=== PATIENT | female | born 1995 ===

== ENCOUNTER 2016-08-19 02:03 | Emergency (ER) | payer OTHER ==
[~2016-08-19] VITALS: Ht 154.9 cm; Wt 54.4 kg
[2016-08-19 02:07] VITALS: BP 113/73
--- NOTE | 2016-08-19 02:23 | Emergency Room Report ---
History of Present Illness General Chief Complaint: Pain Source: Patient Present Illness HPI The patient presents with severe right flank pain that began when she started lifting her daughter. She is 3 weeks . The pain is in her right flank and there is some pain when she moves her left leg but also more when she moves her right leg. She denies dysuria, fevers, shortness of breath. She has not taken any medication tonight. She's taking iron. Vaginal delivery with no complications. She has some bleeding that she considers normal. There is no dysuria. There is no family history of renal stones. . No NVD. Allergies: Coded Allergies: No Known Allergies (Unverified , 08/19/16) Patient History Past Medical History: see triage record Social History Narrative has 5 yo also at home Last Menstrual Period: Gave aprrox. 3 weeks ago Now: No Reviewed Nursing Documentation: PMH: Agreed, PSxH: Agreed Nursing Documentation-PMH Past Medical History: No Stated History Review of Systems All Other Systems: negative except mentioned in HPI Physical Exam Vital Signs Date Time Temp Pulse Resp B/P Pulse Ox O2 Delivery O2 Flow Rate FiO2 08/19/16 02:00 97.9 76 18 113/73 99 Room Air Sp02 EP Interpretation: reviewed, normal General Appearance: well appearing, no apparent distress, GCS 15 Head: normocephalic Eyes: bilateral eye normal inspection ENT: moist mucus membranes Neck: supple Respiratory: lungs clear, normal breath sounds Cardiovascular #1: regular rate, rhythm Cardiovascular #2: 2+ radial (R) Gastrointestinal: normal inspection, normal bowel sounds, non tender, no mass, non-distended Genitourinary: CVA tenderness (R) - more muscular Musculoskeletal: other - no spine tenderness - R flank and R CVA area tenderness Neurologic: alert, oriented x3, grossly normal Psychiatric: mood/affect normal Skin: normal inspection, warm/dry Medical Decision Making Diagnostic Impression: Primary Impression: Flank pain Additional Impressions: 3 months post ER Course The patient presents with right flank pain which began when she was lifting her baby. She is 3 weeks . Differential includes renal stone, pyelonephritis, muscle strain with spasm amongst others. Emergent evaluation is undertaken with labs, x-rays. The patient was treated with IV hydration and analgesia. Of note she is breast-feeding. Labs unremarkable. Blood in urine felt related to lochia. Still with pain. Analgesia successful in relieving pain. Patient stable for outpatient observation and treatment. Labs Test 08/19/16 02:30 White Blood Count 6.9 K/UL (4.8-10.8) Red Blood Count 4.89 M/UL (4.20-5.40) Hemoglobin 10.4 G/DL (12.0-16.0) Hematocrit 35.3 % (37.0-47.0) Mean Corpuscular Volume 72 FL (80-99) Mean Corpuscular Hemoglobin 21.3 PG (27.0-31.0) Mean Corpuscular Hemoglobin Concent 29.6 G/DL (32.0-36.0) Red Cell Distribution Width 19.7 % (11.6-14.8) Platelet Count 298 K/UL (150-450) Mean Platelet Volume 8.4 FL (6.5-10.1) Neutrophils (%) (Auto) 48.7 % (45.0-75.0) Lymphocytes (%) (Auto) 39.9 % (20.0-45.0) Monocytes (%) (Auto) 6.4 % (1.0-10.0) Eosinophils (%) (Auto) 4.3 % (0.0-3.0) Basophils (%) (Auto) 0.7 % (0.0-2.0) Urine Color Yellow Urine Appearance Slightly cloudy Urine pH 5 (4.5-8.0) Urine Specific [place] 1.025 (1.005-1.035) Urine Protein 1+ (NEGATIVE) Urine Glucose (UA) Negative (NEGATIVE) Urine Ketones Negative (NEGATIVE) Urine Occult Blood 5+ (NEGATIVE) Urine Nitrite Negative (NEGATIVE) Urine Bilirubin Negative (NEGATIVE) Urine Urobilinogen 1 MG/DL (0.0-1.0) Urine Leukocyte Esterase 1+ (NEGATIVE) Urine RBC Tntc /HPF (0 - 2) Urine WBC 2-4 /HPF (0 - 2) Urine Squamous Epithelial Cells Moderate /LPF (NONE/OCC) Urine Bacteria Few /HPF (NONE) Sodium Level 143 mEQ/L (135-145) Potassium Level 3.8 mEQ/L (3.4-4.9) Chloride Level 102 mEQ/L (98-107) Carbon Dioxide Level 27 mEQ/L (20-30) Anion Gap 14 (5-15) Blood Urea Nitrogen 15 mg/dL (7-23) Creatinine 0.6 mg/dL (0.5-0.9) Estimat Glomerular Filtration Rate > 60 mL/min (>60) Glucose Level 97 mg/dL (74-106) Calcium Level 9.0 mg/dL (8.6-10.2) Total Bilirubin 0.4 mg/dL (0.0-1.2) Aspartate Amino Transf (AST/SGOT) 16 U/L (5-40) Alanine Aminotransferase (ALT/SGPT) 9 U/L (3-33) Alkaline Phosphatase 98 U/L (35-104) Total Protein 7.6 g/dL (6.6-8.7) Albumin 3.9 g/dL (3.5-5.2) Globulin 3.7 g/dL Albumin/Globulin Ratio 1.0 (1.0-2.7) Lipase 41 U/L (< 60) Last Vital Signs Date Time Temp Pulse Resp B/P Pulse Ox O2 Delivery O2 Flow Rate FiO2 08/19/16 05:20 98.1 74 16 120/78 100 Room Air Status: improved Disposition: HOME, SELF-CARE Condition: Improved Scripts Hydrocodone Bit/Acetaminophen 5-325* (NORCO 5-325*) 1 Each Tablet 1 TAB ORAL Q6H Y for For Pain, #10 TAB 0 Refills Prov: Shashank Tsai M.D. 08/19/16 Ibuprofen* (MOTRIN*) 600 Mg Tablet 600 MG ORAL Q6H Y for For Pain, #20 TAB Prov: Shashank Tsai M.D. 08/19/16 Shashank Tsai M.D. Aug 19, 2016 02:23
[2016-08-19] MEDS ORDERED: Ketorolac 30mg Inj IV ONE (02:30)
[2016-08-19] MEDS ORDERED: fentaNYL 100 mcg/2 mL IV ONE ×2 (02:30→04:00)
[2016-08-19 02:40] LABS: BASOPHILS % (AUTO) 0.7 % (0.0-2.0); EOSINOPHILS % (AUTO) 4.3 % (0.0-3.0); LYMPHOCYTES % (AUTO) 39.9 % (20.0-45.0); MEAN CORPUSCULAR HEMOGLOBIN 21.3 PG (27.0-31.0); MEAN CORPUSCULAR HGB CONC 29.6 G/DL (32.0-36.0); MEAN CORPUSCULAR VOLUME 72 FL (80-99); MEAN PLATELET VOLUME 8.4 FL (6.5-10.1); MONOCYTES % (AUTO) 6.4 % (1.0-10.0); NEUTROPHILS % (AUTO) 48.7 % (45.0-75.0); PLATELET COUNT 298 K/UL (150-450); RED BLOOD COUNT 4.89 M/UL (4.20-5.40); RED CELL DISTRIBUTION WIDTH 19.7 % (11.6-14.8); WHITE BLOOD COUNT 6.9 K/UL (4.8-10.8)
[2016-08-19 02:55] LABS: ALANINE AMINOTRANSFERASE 9 U/L (3-33); ANION GAP 14 (5-15); ASPARTATE AMINO TRANSFERASE 16 U/L (5-40); CARBON DIOXIDE 27 mEQ/L (20-30); CHLORIDE 102 mEQ/L (98-107); CREATININE 0.6 mg/dL (0.5-0.9); GLOMERULAR FILTRATION RATE > 60 mL/min (>60); HEMOLYSIS 0; LIPASE 41 U/L (< 60); POTASSIUM 3.8 mEQ/L (3.4-4.9); SODIUM 143 mEQ/L (135-145); TOTAL PROTEIN 7.6 g/dL (6.6-8.7)
[2016-08-19 03:31] LABS: KETONES,URINE NEGATIVE (NEGATIVE); LEUKOCYTE ESTERASE ,URINE 1+ (NEGATIVE); NITRITE,URINE NEGATIVE (NEGATIVE); PH,URINE 5 (4.5-8.0); PROTEIN,URINE 1+ (NEGATIVE); UROBILINOGEN,URINE 1 MG/DL (0.0-1.0)
[2016-08-19 03:38] LABS: APPEARANCE,URINE SLIGHTLY CLOUDY
[2016-08-19 03:39] LABS: BACTERIA,URINE FEW /HPF; RBC,URINE TNTC /HPF (0 - 2); SQUAMOUS EPITHELIAL CELL,UR MODERATE /LPF (NONE/OCC)
[2016-08-19 04:00] VITALS: BP 115/76
[2016-08-19] MEDS ORDERED: NORCO 5-325 TA1 EACH ORAL (04:00)
[2016-08-19] MEDS ORDERED: IBUPROFEN600 MG ORAL (04:00)
[2016-08-19 05:20] VITALS: BP 120/78
--- NOTE | 2016-08-19 09:56 | Diagnostic Imaging Report ---
Indication: Abdominal pain Technique: XRAY ABDOMEN 1VIEW/KUB Comparison: None. Findings: The bowel gas pattern is nonobstructive. There is no organomegaly. The bones are unremarkable. There is no pelvic fluid. No gross free air. The lower aspect of the pelvis has been cut off the study. Impression: Negative abdomen.
== END 2016-08-19 05:20 | disposition home or self-care (01) ==
LOC: EDBD 02:03 → EMR 02:54
DX: O90.89 Other complications of the puerperium, not elsewhere classified (principal); R10.9 Unspecified abdominal pain
CPT/HCPCS: 36415; 74000; 80053; 81003; 83690; 85025; 96360; 96374; 96375; 99284; J1885; J2405; J3010